=== PATIENT | female | born 1950 | race Caucasian/White ===

== ENCOUNTER → 2016-10-27 | Outpatient (CLI) | payer OTHER ==
[2016-10-27 13:32] LABS: ESTIMATED AVERAGE GLUCOSE 151 mg/dl; HA1C FLAG Normal (Normal)
[2016-10-27 14:09] LABS: MAGNESIUM 2.2 mg/dl (1.8-2.4); THYROID STIMULATING HORMONE 1.35 uIu/ml (0.300-4.500)
== END | disposition home or self-care (01) ==
LOC: C.LAB1850 12:20
PROVIDERS: ATTEND Internal Medicine Endocrinology, Diabetes & Metabolism
DX: E11.9 Type 2 diabetes mellitus without complications (principal); E04.2 Nontoxic multinodular goiter; M79.1 Myalgia

== ENCOUNTER → 2017-01-13 | Outpatient (CLI) | payer OTHER | END | disposition home or self-care (01) | LOC: C.LAB1850 14:08 | PROVIDERS: ATTEND Allergy & Immunology | DX: Z51.81 Encounter for therapeutic drug level monitoring (principal); Z79.899 Other long term (current) drug therapy ==

== ENCOUNTER → 2017-02-04 | Outpatient (CLI) | payer OTHER ==
--- NOTE | 2017-02-04 13:13 | DIAGNOSTIC IMAGING REPORT ---
THYROID ULTRASOUND HISTORY: E04.2 Multiple thyroid [id number] COMPARISON: Outside hospital thyroid ultrasound 01/02/2016. FINDINGS: Right lobe: 5.2 x 2.0 x 1.7 cm. Multiple thyroid nodules are again noted. The gland is heterogeneous. Dominant solid nodule within the lower pole measures 1.2 cm. This was not measured on the prior study but appears stable in size. Overall, the nodules appear similar. Left lobe: 5.2 x 2.7 x 2.5 cm. There is a heterogeneous but probably solid 3.7 x 2.4 x 2.3 cm nodule within the mid to lower pole. This previously measured 2.8 x 1.8 x 1.9 cm. Isthmus: 8 mm in thickness. No nodules. IMPRESSION: 1. Stable right thyroid nodules with the largest measuring 1.2 cm. These do not meet sonographic criteria for biopsy. 2. Increase in size in the 3.7 cm nodule within the left thyroid lobe. If not already performed, ultrasound-guided fine-needle aspiration is recommended. Electronically signed by: Mac Stringer M.D. 02/04/2017 1:11 PM Dictated Date/Time: 02/04/2017 1:07 PM
== END | disposition home or self-care (01) ==
LOC: C.ULTRBC 12:24
PROVIDERS: ATTEND Physician Assistant
DX: E04.2 Nontoxic multinodular goiter (principal)

== ENCOUNTER → 2017-02-11 | Outpatient (CLI) | payer OTHER ==
[2017-02-11 10:44] LABS: ALT/SGPT 42 U/L (12-78); AST/SGOT 23 U/L (15-37); BLOOD UREA NITROGEN 23 mg/dl (7-18); BUN/CREATININE RATIO 38.4 (10-20); CALCIUM 9.5 mg/dl (8.5-10.1); CARBON DIOXIDE 29 mmol/L (21-32); CHLORIDE 105 mmol/L (98-107); CHOLESTEROL 186 mg/dl (0-200); CREATININE 0.59 mg/dl (0.60-1.20); GLUCOSE 108 mg/dl (70-99); POTASSIUM 4.4 mmol/L (3.5-5.1); SODIUM 141 mmol/L (136-145)
[2017-02-11 10:46] LABS: ALB/GLOB RATIO 1.2 (0.9-2); ALKALINE PHOSPHATASE 67 U/L (45-117); CHOLESTEROL/HDL RATIO 3.1; HDL CHOLESTEROL 60 mg/dl; LDL CHOLESTEROL CALCULATED 98 mg/dl; TRIGLYCERIDES 140 mg/dl (0-150); VERY LOW DENSITY LIPOPROT CALC 28 mg/dl
== END | disposition home or self-care (01) ==
LOC: C.LAB1850 09:00
PROVIDERS: ATTEND Family Medicine
DX: I10 Essential (primary) hypertension (principal); E78.5 Hyperlipidemia, unspecified

== ENCOUNTER → 2017-05-18 | Outpatient (CLI) | payer OTHER ==
[2017-05-18 16:58] LABS: ALT/SGPT 29 U/L (12-78); AST/SGOT 16 U/L (15-37); BLOOD UREA NITROGEN 26 mg/dl (7-18); BUN/CREATININE RATIO 46.3 (10-20); CALCIUM 9.9 mg/dl (8.5-10.1); CARBON DIOXIDE 29 mmol/L (21-32); CHLORIDE 105 mmol/L (98-107); CREATININE 0.56 mg/dl (0.60-1.20); GLUCOSE 65 mg/dl (70-99); POTASSIUM 3.9 mmol/L (3.5-5.1); SODIUM 140 mmol/L (136-145)
[2017-05-18 17:01] LABS: ALB/GLOB RATIO 1.3 (0.9-2); ALKALINE PHOSPHATASE 58 U/L (45-117); CHOLESTEROL 170 mg/dl (0-200); CHOLESTEROL/HDL RATIO 3.6; HDL CHOLESTEROL 47 mg/dl; LDL CHOLESTEROL CALCULATED 69 mg/dl; TRIGLYCERIDES 272 mg/dl (0-150); VERY LOW DENSITY LIPOPROT CALC 54 mg/dl
[2017-05-18 17:09] LABS: RATIO 32.2 mcg/mg (0-30.0)
[2017-05-19 08:25] LABS: ESTIMATED AVERAGE GLUCOSE 143 mg/dl; HA1C FLAG Normal (Normal)
== END | disposition home or self-care (01) ==
LOC: C.LAB1850 15:00
PROVIDERS: ATTEND Physician Assistant
DX: E04.2 Nontoxic multinodular goiter (principal)

== ENCOUNTER → 2017-09-06 | Outpatient (CLI) | payer OTHER ==
[2017-09-06 15:54] LABS: ESTIMATED AVERAGE GLUCOSE 151 mg/dl; HA1C FLAG Normal (Normal)
== END | disposition home or self-care (01) ==
LOC: C.LAB1850 12:14
PROVIDERS: ATTEND Physician Assistant
DX: E11.9 Type 2 diabetes mellitus without complications (principal)

== ENCOUNTER → 2017-11-02 | Outpatient (CLI) | payer OTHER ==
[2017-11-02 12:30] LABS: HEMOGLOBIN A1C 7.3 % (4.5-5.6)
[2017-11-02 15:57] LABS: CREATININE RANDOM URINE < 13.0 mg/dl
[2017-11-02 16:17] LABS: ALBUMIN 4.4 gm/dl (3.4-5.0); ALT/SGPT 51 U/L (12-78); BLOOD UREA NITROGEN 18 mg/dl (7-18); CALCIUM 9.6 mg/dl (8.5-10.1); CARBON DIOXIDE 30 mmol/L (21-32); CHOLESTEROL 202 mg/dl (0-200); GLUCOSE 108 mg/dl (70-99); POTASSIUM 4.3 mmol/L (3.5-5.1); SODIUM 136 mmol/L (136-145)
[2017-11-02 16:19] LABS: ALKALINE PHOSPHATASE 74 U/L (45-117); AST/SGOT 25 U/L (15-37); LDL CHOLESTEROL CALCULATED 103 mg/dl; TOTAL PROTEIN 7.9 gm/dl (6.4-8.2)
== END | disposition home or self-care (01) ==
LOC: C.LAB1850 11:25
PROVIDERS: ATTEND Physician Assistant
DX: Z00.00 Encounter for general adult medical examination without abnormal findings (principal); E78.5 Hyperlipidemia, unspecified; E11.9 Type 2 diabetes mellitus without complications; Z11.59 Encounter for screening for other viral diseases; I10 Essential (primary) hypertension

== ENCOUNTER → 2018-02-08 | Outpatient (CLI) | payer OTHER ==
--- NOTE | 2018-02-08 15:11 | DIAGNOSTIC IMAGING REPORT ---
R HAND MIN 3 VIEWS ROUTINE CLINICAL HISTORY: 67 years-old Female presenting with M15.4 Erosive osteoarthritis of hands, [id number] Encounter. TECHNIQUE: Frontal, oblique, and lateral views of the right hand were obtained. COMPARISON: Correlation made to plain radiographs of the left hand performed the same day. FINDINGS: Osteopenia may be present. Joint space loss, subchondral sclerosis, and osteophytosis evident at the first carpometacarpal articulation as well as the interphalangeal joint of the first finger, proximal interphalangeal joints of the third and fifth fingers, and distal interphalangeal joints of the second through fifth fingers. Central erosions may be present at several distal interphalangeal joints. No acute fracture or acute malalignment. IMPRESSION: 1. Degenerative changes characteristic of osteoarthritis. Additionally, evidence of erosive osteoarthritis at distal interphalangeal joints. 2. No acute osseous injury. Electronically signed by: Claudio Isaac M.D. 02/08/2018 3:10 PM Dictated Date/Time: 02/08/2018 3:07 PM
--- NOTE | 2018-02-08 15:15 | DIAGNOSTIC IMAGING REPORT ---
L HAND MIN 3 VIEWS ROUTINE CLINICAL HISTORY: 67 years-old Female presenting with M15.4 Erosive osteoarthritis of hands, [id number] Encounter. TECHNIQUE: Frontal, oblique, and lateral views of the left hand were obtained. COMPARISON: Comparison made to plain radiographs of the right hand performed the same day. FINDINGS: Joint space loss, subchondral sclerosis, and osteophytosis evident at the first metacarpophalangeal articulation. Significant osteophytosis and joint space loss evident at the interphalangeal joint of the first finger as well as at the proximal interphalangeal joints of the third through fifth fingers, and distal interphalangeal joints of the second through fifth fingers. Central erosions suggested at several proximal interphalangeal and distal interphalangeal joints, marked on the images. No acute fracture or acute malalignment. IMPRESSION: 1. Degenerative changes characteristic of osteoarthritis. Central erosions suggest erosive osteoarthritis. 2. No acute osseous injury. Electronically signed by: Claudio Isaac M.D. 02/08/2018 3:13 PM Dictated Date/Time: 02/08/2018 3:11 PM
--- NOTE | 2018-02-08 15:28 | DIAGNOSTIC IMAGING REPORT ---
THORACIC SPINE 3 VIEWS ROUTINE CLINICAL HISTORY: 67 years-old Female presenting with M15.4 Erosive osteoarthritis of hands, [id number] Encounter. TECHNIQUE: 3 views of the thoracic spine were obtained. COMPARISON: None. FINDINGS: Mild dextrocurvature of the thoracic spine suggested. Otherwise normal thoracic kyphosis. Vertebral bodies grossly maintained normal height and alignment evaluation of the upper thoracic spine is limited due to overlapping tissues. Partially visualized cervical spine demonstrates extensive degenerative change. Focal disc osteophyte complex noted in the mid to lower thoracic spine. No gross evidence of a compression deformity or subluxation. No gross evidence of osseous neural foraminal narrowing. Visualized portion of the lungs and pleural spaces clear. IMPRESSION: 1. No radiographic evidence of acute osseous injury. 2. Focal degenerative change in the mid to lower thoracic spine. No radiographic evidence of osseous neural foraminal narrowing. 3. Evaluation of the upper thoracic spine limited. Electronically signed by: Claudio Isaac M.D. 02/08/2018 3:27 PM Dictated Date/Time: 02/08/2018 3:25 PM
[2018-02-08 16:12] LABS: URIC ACID 6.2 mg/dl (2.6-7.2)
== END | disposition home or self-care (01) ==
LOC: C.LAB1850 08:50
PROVIDERS: ATTEND Physician Assistant
DX: M15.4 Erosive (osteo)arthritis (principal); M48.00 Spinal stenosis, site unspecified; Z79.1 Long term (current) use of non-steroidal anti-inflammatories (NSAID); E11.9 Type 2 diabetes mellitus without complications; M19.042 Primary osteoarthritis, left hand; M19.041 Primary osteoarthritis, right hand; M51.34 Other intervertebral disc degeneration, thoracic region

== ENCOUNTER → 2018-05-19 | Outpatient (CLI) | payer OTHER ==
[2018-05-19 15:38] LABS: ALBUMIN 4.1 gm/dl (3.4-5.0); ALKALINE PHOSPHATASE 103 U/L (45-117); ALT/SGPT 111 U/L (12-78); AST/SGOT 71 U/L (15-37); BLOOD UREA NITROGEN 12 mg/dl (7-18); CALCIUM 9.4 mg/dl (8.5-10.1); CARBON DIOXIDE 31 mmol/L (21-32); CHOLESTEROL 149 mg/dl (0-200); CREATININE 0.63 mg/dl (0.60-1.20); GLUCOSE 74 mg/dl (70-99); LDL CHOLESTEROL CALCULATED 48 mg/dl; POTASSIUM 4.4 mmol/L (3.5-5.1); SODIUM 139 mmol/L (136-145); TOTAL PROTEIN 7.5 gm/dl (6.4-8.2)
[2018-05-20 06:16] LABS: HEMOGLOBIN A1C 6.9 % (4.5-5.6)
== END | disposition home or self-care (01) ==
LOC: C.LAB1850 13:43
PROVIDERS: ATTEND Physician Assistant
DX: E04.2 Nontoxic multinodular goiter (principal); I10 Essential (primary) hypertension; E11.9 Type 2 diabetes mellitus without complications; E78.5 Hyperlipidemia, unspecified